=== PATIENT | female | born 1935 | race Asian ===

== ENCOUNTER 2018-01-27 10:58 | Emergency (ER) | payer MEDICARE, MEDICAID ==
--- NOTE | 2018-01-27 11:43 | ED Physician Chart ---
ED Chief Complaint/HPI - Patient Information Date Seen:: 01/28/16 Time Seen:: 11:30 Chief Complaint:: 5150, THREATENED SUICIDE. History of Present Illness:: PATIENT THREATENED TO INJURE SELF WITH SCISSORS. POLICE CALLED, PLACED ON 515, HISTORY OF PRIOR ATTEMPT FROM POLICE INFORMATION. PATIENT DOES NOT SPEAK [place] , ORIENTAL DIALECT ONLY. LANGUAGE BARRIER. 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) Review:: Nurse's Note Reviewed ED Review of Systems - Review of Systems General/Constitutional: No fever (5150 unreliable ros and history) Skin: No skin lesions ENT: No nasal drainage Cardio Vascular: No edema Pulmonary: No SOB GI: No vomiting Psychiatric: Prior psych history (5149, MULTIPLE ATTEMPTS ), Suicidal ideation ED Past Medical History - Past Medical History Obtainable: No (PATIENT WAS CRYING OUT IN ORIENTAL LANGUAGE, CRYING ) Past Medical History: DM Psychiatricy History: Depression (MULTIPLE SUICIDE ATTEMPTS AND THREATS) Family Medical History - Family Member Mother History Unknown: Yes ED Physical Exam - Physical Examination General/Constitutional: Non-toxic appearing, Ambulatory Head: Atraumatic Eyes: Lids, conjuctiva normal Skin: Nl inspection ENMT: External ears, nose nl Neck: Nontender, No JVD Respiratory: Nl effort/Exclusion, Clear to Auscultation Cardio Vascular: RRR, No murmur, gallop, rubs, NL S1 S2 GI: No tenderness/rebounding/guarding, Normal BS's, Nondistended (slight limp with ambulation) : No CVA tenderness Extremities: No tenderness or effusion Neuro/Psych: Alert/oriented, DTR's symmetric, Normal sensory exam, Normal motor strength, Judgement/insight normal, Normal gait, No focal deficits Misc: No paraspinal tenderness ED Labs/Radiology/EKG Results - Lab Results Results: ELEVATED GLUCOSE. ED Assessment - Assessment General Assessment: HX OF PRIOR 5149. IN A SOCIAL SITUATION AND WAS THREATENING TO HARM HERSELF. POLICE ESCORT TO ER. WILL BE ADMITTED TO [facility] ON 5149 HOLD IN ACCORDANCE WITH PROTOCOL. This condition life threatening/high prob of deterioration: Yes ED Septic Shock - . Is Septic Shock (SBP<90, OR Lactate>4 mmol\L) present?: No - <6hrs of presentation: Vital Signs: Vital Signs - 8 hr 01/27/18 11:27 Temp 96.9 F HR 66 RR 16 BP 155/79 O2 Sat % 95 ED Reassessment (Disposition) - Reassessment Reassessment:: PATIENT ADMITTED TO [facility] PER 5149 PROTOCOL. Reassessment Condition:: Unchanged - Diagnosis Diagnosis:: PSYCHOTIC BREAK WITH POTENTIAL SELF HARM, SUICIDAL IDEATION, 5149 - Aftercare/Follow up Instructions Notes:: ADMITTED TO [facility]. - Patient Disposition Discharge/Transfer:: Acute Care w/in this hosp Condition at Disposition:: Unchanged ED Discharge Plan - Patient Disposition Admit/Discharge/Transfer: Acute Care w/in this hosp Condition at Disposition: Unchanged Instructions: Psychosis
[2018-01-27 12:08] LABS: HEMATOCRIT 36.7 % (41.0-60); HEMOGLOBIN 12.9 gm/dL (12-16); MEAN CELL VOLUME 99.9 fl (81-100); MEAN CORPUSCULAR HEMOGLOBIN 35.2 pg (27.0-31.0); MEAN CORPUSCULAR HGB CONC 35.2 pg (28.0-36.0); MEAN PLATELET VOLUME 7.4 fl; PLATELET COUNT 166 Th/cmm (150-400); RED BLOOD COUNT 3.67 Mil/cmm (3.80-5.20); RED CELL DISTRIBUTION WIDTH 13.4 % (11.5-20.0); WHITE BLOOD COUNT 9.7 Th/cmm (4.8-10.8)
[2018-01-27 12:28] LABS: ANION GAP 12.1 (7.0-16.0); BUN - UREA NITROGEN 16 mg/dL (7-25); CALCIUM SERUM 9.3 mg/dL (8.6-10.3); CARBON DIOXIDE 23.4 mEq/L (21.0-31.0); CHLORIDE 109 mEq/L (98-107); CREATININE - SERUM 0.8 mg/dL (0.6-1.2); GLUCOSE 237 mg/dL (70-105); POTASSIUM SERUM 3.5 mEq/L (3.5-5.1); SODIUM SERUM 141 mEq/L (136-145)
[2018-01-27 12:46] LABS: BAND NEUTROPHILE 1 % (0-10); BASOPHIL 0 % (0-3); EOSINOPHIL 0 % (0-5); LYMPHOCYTE 64 % (20-50); MANUAL DIFF REQUIRED? YES; MONOCYTE 3 % (2-10); NEUTROPHILS 32 % (40-80); TOTAL CELLS COUNTED 100
[2018-01-27 14:08] LABS: URINE BILIRUBIN NEGATIVE (NEGATIVE); URINE BLOOD SMALL (NEGATIVE); URINE GLUCOSE (UA) 100 mg/dL (NEGATIVE); URINE KETONE NEGATIVE (NEGATIVE); URINE LEUKOCYTE ESTERASE NEGATIVE (NEGATIVE); URINE MICROSCOPIC INDICATED? YES; URINE NITRATE NEGATIVE (NEGATIVE); URINE PH 6.5 (4.6 - 8.0); URINE PROTEIN NEGATIVE (NEGATIVE); URINE SOURCE CLEAN C; URINE UROBILINOGEN 0.2 E.U./dL (0.2 - 1.0)
[2018-01-27 14:09] LABS: URINE CLARITY CLEAR (CLEAR); URINE COLOR YELLOW
[2018-01-27 14:11] LABS: URINE BACTERIA FEW /hpf (NONE SEEN); URINE EPITHELIAL CELLS FEW /lpf (FEW)
[2018-01-29 22:01] LABS: A1C % 5.1 % (4.0-6.0)
== END 2018-01-28 12:30 | disposition short-term general hospital (02) ==
LOC: ER 10:58
DX: R45.851 Suicidal ideations (principal); F32.9 Major depressive disorder, single episode, unspecified; E11.9 Type 2 diabetes mellitus without complications
CPT/HCPCS: 36415-UA; 80048-TC; 81001-TC; 82948-90; 83036-90; 85007-TC; 85025-TC; 85027-TC; Z7502